=== PATIENT | male | born 1955 | race Caucasian/White ===

== ENCOUNTER 2020-07-17 08:27 | Emergency (ER) | payer MEDICARE, MEDICAID ==
--- NOTE | 2020-07-17 09:38 | EDM.PDOC ---
ED HPI GENERAL MEDICAL PROBLEM - General Chief Complaint: General Stated Complaint: COVID + Time Seen by Provider: 07/17/20 08:47 Source of Information: Reports: Patient History Limitations: Reports: No Limitations - History of Present Illness INITIAL COMMENTS - FREE TEXT/NARRATIVE: The patient presents by alf van from [facility] for medical clearance. The patient has a history of psychiatric problems and COPD. He is on oxygen at the alf at 2L and he has not required anymore oxygen. He tested positive for COVID 19 yesterday. He has no symptoms such as fever, chills, headache, cough, chest pain, shortness of breath, abdominal pain, nausea, vomiting or diarrhea. Arrangements have been made to transport him to [facility] at the [facility] [place]. Onset: Gradual Duration: Day(s): Severity: Moderate Improves with: Reports: None Worsens with: Reports: None Associated Symptoms: Reports: No Other Symptoms Left Hip Pain Score (Numeric/FACES): 3 - Related Data Allergies Allergy/AdvReac Type Severity Reaction Status Date / Time No Known Allergies Allergy Verified 03/22/20 07:48 Past Medical History Respiratory History: Reports: COPD Social & Family History - Tobacco Use Tobacco Use Status *Q: Former Tobacco User Used Tobacco, but Quit: No - Caffeine Use Caffeine Use: Reports: Coffee - Recreational Drug Use Recreational Drug Use: No ED ROS GENERAL - Review of Systems Review Of Systems: See Below Constitutional: Reports: No Symptoms HEENT: Reports: No Symptoms Respiratory: Reports: No Symptoms Cardiovascular: Reports: No Symptoms Endocrine: Reports: No Symptoms GI/Abdominal: Reports: No Symptoms : Reports: No Symptoms Musculoskeletal: Reports: No Symptoms ED EXAM, GENERAL - Physical Exam Exam: See Below Exam Limited By: No Limitations General Appearance: Alert, No Apparent Distress Ears: Normal External Exam Nose: Normal Inspection Head: Atraumatic, Normocephalic Neck: Normal Inspection Respiratory/Chest: No Respiratory Distress, Lungs Clear, Normal Breath Sounds Cardiovascular: Regular Rate, Rhythm, No Edema, No Murmur GI/Abdominal: Soft, Non-Tender, No Organomegaly, No Mass Back Exam: Normal Inspection Extremities: Normal Inspection Course - Vital Signs Last Recorded V/S: Last Vital Signs Temp 97.7 F 07/17/20 08:56 Pulse 80 11/18/20 09:43 Resp 18 07/17/20 09:43 BP 124/57 L 07/17/20 08:56 Pulse Ox 94 L 07/17/20 09:43 - Orders/Labs/Meds Orders: Active Orders 24 hr Category Date Time Status Cardiac Monitoring [RC] . DIRECTED Care 07/17/20 09:18 Active Oxygen Therapy [RC] PRN Care 07/17/20 09:19 Active Chest 1V Frontal [CR] Stat Exams 07/17/20 09:19 Taken ACETAMINOPHEN [CHEM] Stat Lab 07/17/20 09:35 Received C-REACTIVE PROTEIN [CHEM] Stat Lab 07/17/20 09:35 Received COMPREHENSIVE METABOLIC PN,CMP [CHEM] Stat Lab 07/17/20 09:35 Received D-DIMER QUANTITATIVE [COAG] Stat Lab 07/17/20 09:35 Received DRUG SCREEN, URINE [URCHEM] Stat Lab 07/17/20 09:18 Ordered ETHANOL BLOOD MEDICAL [CHEM] Stat Lab 07/17/20 09:35 Received LACTIC ACID [CHEM] Stat Lab 07/17/20 09:35 Received SALICYLATE [CHEM] Stat Lab 07/17/20 09:35 Received SEDIMENTATION RATE AUTO [HEME] Stat Lab 07/17/20 09:35 Received TSH [CHEM] Stat Lab 07/17/20 09:35 Received Labs: Laboratory Tests 07/17/20 Range/Units 09:35 WBC 4.36 (4.23-9.07) K/mm3 RBC 3.90 L (4.63-6.08) M/mm3 Hgb 12.7 L (13.7-17.5) gm/dl Hct 39.6 L (40.1-51.0) % MCV 101.5 H (79.0-92.2) fl MCH 32.6 H (25.7-32.2) pg MCHC 32.1 L (32.2-35.5) g/dl RDW Std Deviation 49.6 H (35.1-43.9) fL Plt Count 193 (163-337) K/mm3 MPV 8.8 L (9.4-12.3) fl Neut % (Auto) 66.5 (34.0-67.9) % Lymph % (Auto) 18.8 L (21.8-53.1) % Simpson % (Auto) 12.8 H (5.3-12.2) % Eos % (Auto) 1.4 (0.8-7.0) Baso % (Auto) 0.5 (0.1-1.2) % Neut # (Auto) 2.90 (1.78-5.38) K/mm3 Lymph # (Auto) 0.82 L (1.32-3.57) K/mm3 Simpson # (Auto) 0.56 (0.30-0.82) K/mm3 Eos # (Auto) 0.06 (0.04-0.54) K/mm3 Baso # (Auto) 0.02 (0.01-0.08) K/mm3 - Re-Assessments/Exams Free Text/Narrative Re-Assessment/Exam: 07/17/20 09:51 I have ordered a CXR and labs. 07/17/20 10:00 His CXR shows poor inspiratory effort but no infiltrates noted. Labs are pending. His oxygen saturations remain in the mid 90s on 2L of oxygen. I feel he is medically cleared to go to the [facility]. Departure - Departure Time of Disposition: 10:05 Disposition: DC/[facility]fer to [facility] Condition: Good Clinical Impression: COVID-19 COPD (chronic obstructive pulmonary disease) Qualifiers: COPD type: unspecified COPD Qualified Code(s): J44.9 - Chronic obstructive pulmonary disease, unspecified - Discharge Information *PRESCRIPTION DRUG MONITORING PROGRAM REVIEWED*: Not Applicable *COPY OF PRESCRIPTION DRUG MONITORING REPORT IN PATIENT DARIUS: Not Applicable Referrals: PCP,None [Primary Care Provider] - Forms: ED Department Discharge Additional Instructions: A medical screening exam was done and you are medically cleared to go to the [facility] in [place]. Sepsis Event Note (ED) - Evaluation Sepsis Screening Result: No Definite Risk - Focused Exam Vital Signs: Vital Signs Temp Pulse Resp BP Pulse Ox Pulse Ox 07/17/20 09:43 80 18 94 L 07/17/20 09:42 94 L 07/17/20 08:56 97.7 F 83 18 124/57 L 95 - My Orders Last 24 Hours: My Active Orders 07/17/20 09:18 Cardiac Monitoring [RC] . DIRECTED DRUG SCREEN, URINE [URCHEM] Stat 07/17/20 09:19 Oxygen Therapy [RC] PRN Chest 1V Frontal [CR] Stat 07/17/20 09:35 ACETAMINOPHEN [CHEM] Stat C-REACTIVE PROTEIN [CHEM] Stat COMPREHENSIVE METABOLIC PN,CMP [CHEM] Stat D-DIMER QUANTITATIVE [COAG] Stat ETHANOL BLOOD MEDICAL [CHEM] Stat LACTIC ACID [CHEM] Stat SALICYLATE [CHEM] Stat SEDIMENTATION RATE AUTO [HEME] Stat TSH [CHEM] Stat - Assessment/Plan Last 24 Hours: My Active Orders 07/17/20 09:18 Cardiac Monitoring [RC] . DIRECTED DRUG SCREEN, URINE [URCHEM] Stat 07/17/20 09:19 Oxygen Therapy [RC] PRN Chest 1V Frontal [CR] Stat 07/17/20 09:35 ACETAMINOPHEN [CHEM] Stat C-REACTIVE PROTEIN [CHEM] Stat COMPREHENSIVE METABOLIC PN,CMP [CHEM] Stat D-DIMER QUANTITATIVE [COAG] Stat ETHANOL BLOOD MEDICAL [CHEM] Stat LACTIC ACID [CHEM] Stat SALICYLATE [CHEM] Stat SEDIMENTATION RATE AUTO [HEME] Stat TSH [CHEM] Stat
[2020-07-17] MEDS ORDERED: Sodium Chloride 0.9% 10 ML Syringe FLUSH PRN (10:12)
[2020-07-17 10:19] LABS: ACETAMINOPHEN 0 ug/mL (10-30)
[2020-07-17] MEDS ORDERED: Iopamidol 755 Mg/ML 100 ML Bottle IVPUSH ONE (10:19)
[2020-07-17] MEDS ORDERED: Sodium Chloride 0.9% 100 ML IV SCH (10:30)
[2020-07-17] MEDS ORDERED: Iopamidol 755 MG/ML 50 ML Bottle IVPUSH ONE (10:32)
[2020-07-17] MEDS: Sodium Chloride 0.9% 10 ML Syringe FLUSH PRN ×2 (10:40→11:03)
--- NOTE | 2020-07-17 10:59 | CR ---
PROCEDURE INFORMATION: Exam: XR Chest, 1 View Exam date and time: 07/17/2020 9:18 AM Age: 65 years old Clinical indication: Chest pain; Type not specified TECHNIQUE: Imaging protocol: XR of the chest Views: 1 view. COMPARISON: No relevant prior studies available. FINDINGS: Lungs: The right hemidiaphragm is elevated and there is mild atelectasis at the right lung base. Pleural space: Normal. Heart/Mediastinum: Normal heart and cardiomediastinal silhouette. Vasculature: Normal pulmonary vessel caliber. Normal aorta. Bones/joints: The bones are intact. IMPRESSION: Mild atelectasis. No acute disease. Thank you for allowing us to participate in the care of your patient. Dictated and Authenticated by: Bronson Murray MD 07/17/2020 11:57 AM Central Time ([place] & [place]) [email or web address]
--- NOTE | 2020-07-17 12:03 | CT ---
Addendum created by Saud Villalobos MD on 07/17/2020 12:33 PM Central Time ([place] & [place]): THIS REPORT CONTAINS FINDINGS THAT MAY BE CRITICAL TO PATIENT CARE. The findings were verbally communicated via telephone conference with GUILHERME SANDHU at 12:32 PM TECHNOLOGY PROFESSIONAL on 07/17/2020. The findings were acknowledged and understood. Initial Report created on 07/17/2020 12:31 PM Central Time ([place] & [place]): PROCEDURE INFORMATION: Exam: CT Angiography Chest With Contrast Exam date and time: 07/17/2020 10:30 AM Age: 65 years old Clinical indication: Abnormal findings; Abnormal diagnostic tests; Elevated d- dimer; Additional info: Covid-19 TECHNIQUE: Imaging protocol: Computed tomographic angiography of the chest with intravenous contrast. 3D rendering (Not supervised by radiologist): MIP and/or 3D reconstructed images were created by the technologist. Contrast material: ISOVUE 370; Contrast volume: 100 ml; Contrast route: INTRAVENOUS (IV); COMPARISON: CR Chest 1V Frontal 07/17/2020 9:18 AM FINDINGS: Pulmonary arteries: Filling defects in the upper and lower divisions of the pulmonary arteries, most prominent in the left lower lung. No thrombus extends across the main pulmonary arteries. Aorta: No aortic aneurysm. No aortic dissection. Lungs: No consolidation or infarction. Pleural space: No pleural effusion or pneumothorax. Heart: Borderline cardiomegaly, no right ventricular dilatation. Lymph nodes: No significant adenopathy. Bones/joints: No acute findings. Soft tissues: Right hemidiaphragm elevation. IMPRESSION: Bilateral subsegmental pulmonary emboli. Thank you for allowing us to participate in the care of your patient. Dictated and Authenticated by: Saud Villalobos MD 07/17/2020 12:31 PM Central Time ([place] & [place]) [facility]
[2020-07-17] MEDS ORDERED: Rivaroxaban 15 MG Tab PO ONE (12:15)
[2020-07-17] MEDS ORDERED: Rivaroxaban 15 MG Tab PO SCH (17:00)
== END 2020-07-17 12:45 ==
LOC: JD.ED 08:27
DX: U07.1 COVID-19 (principal); J44.9 Chronic obstructive pulmonary disease, unspecified; Z87.891 Personal history of nicotine dependence
CPT/HCPCS: 36415; 71045; 71275; 80053; 80306; 80307; 83605; 84443; 85025; 85379; 85652; 86140; 94762; 99284; A9270; Q9967; 99283

== ENCOUNTER 2022-10-10 04:10 | Inpatient (IN) | payer MEDICARE, MEDICAID ==
[2022-10-10] MEDS ORDERED: Sodium Chloride 0.9% 10 ML Syringe FLUSH PRN (04:42)
[2022-10-10] MEDS ORDERED: Sodium Chloride 0.9% 1,000 ML IV SCH (04:45)
[2022-10-10 05:31] LABS: CORONAVIRUS COVID-19 NAA NEGATIVE (NEGATIVE)
[2022-10-10] MEDS ORDERED: Meropenem 1 GM in Sodium Chloride 0.9% 100 ML IV ONE (06:02)
[2022-10-10] MEDS: Formoterol/Mometasone 200-5 MCG 8.8 GM Inhaler IH SCH ×2 (09:39→20:30)
[2022-10-10] MEDS ORDERED: oxyCODONE 5 MG Tab PO PRN (10:29)
[2022-10-10] MEDS ORDERED: Acetaminophen 325 MG Tab PO PRN (10:29)
[2022-10-10] MEDS ORDERED: Morphine 2 MG/ML SYRINGE IVPUSH PRN (10:29)
[2022-10-10] MEDS: traMADol 50 MG Tab PO SCH ×4 (12:18→21:26)
[2022-10-10] MEDS: metFORMIN 500 MG Tab PO SCH ×2 (12:19→17:24)
[2022-10-10] MEDS: Carboxymethylcellulose Sodium 1% Ophth Gel 15 ML Bottle EYEBOTH SCH ×3 (12:19→21:26)
[2022-10-10] MEDS: Furosemide 40 MG Tab PO SCH ×2 (12:19→15:27)
[2022-10-10] MEDS: Gabapentin 600 MG Tab PO SCH ×3 (12:19→21:26)
[2022-10-10] MEDS: Memantine 10 MG Tab PO SCH ×2 (12:27→21:26)
[2022-10-10] MEDS: Ziprasidone HCl 20 MG Cap PO SCH ×2 (12:27→21:26)
[2022-10-10] MEDS: Citalopram 10 MG Tab PO SCH (12:27)
[2022-10-10] MEDS: Menthol 10%/Methyl Salicylate 30% 85 GM Tube TOP SCH ×2 (13:17→21:00)
[2022-10-10] MEDS: Insulin Regular, Human 100 Units/ML 3 ML Vial SUBCUT SCH ×2 (13:18→18:09)
[2022-10-10] MEDS: Meropenem 1 GM in Sodium Chloride 0.9% 100 ML IV SCH ×2 (15:28→21:26)
[2022-10-10] MEDS: Rivaroxaban 10 MG Tab PO SCH (17:24)
[2022-10-10] MEDS: Sodium Chloride 0.9% 1,000 ML IV SCH (17:26)
[2022-10-11] MEDS: Furosemide 40 MG Tab PO SCH ×2 (05:55→13:00)
[2022-10-11] MEDS: Meropenem 1 GM in Sodium Chloride 0.9% 100 ML IV SCH ×3 (05:56→22:17)
[2022-10-11] MEDS: metFORMIN 500 MG Tab PO SCH ×2 (05:59→16:49)
[2022-10-11] MEDS: Insulin Regular, Human 100 Units/ML 3 ML Vial SUBCUT SCH ×3 (08:26→18:01)
[2022-10-11] MEDS: Citalopram 10 MG Tab PO SCH (08:26)
[2022-10-11] MEDS: Ziprasidone HCl 20 MG Cap PO SCH ×2 (08:26→20:20)
[2022-10-11] MEDS: traMADol 50 MG Tab PO SCH ×4 (08:27→20:20)
[2022-10-11] MEDS: Memantine 10 MG Tab PO SCH ×2 (08:28→20:21)
[2022-10-11] MEDS: Menthol 10%/Methyl Salicylate 30% 85 GM Tube TOP SCH ×2 (08:28→20:23)
[2022-10-11] MEDS: Gabapentin 600 MG Tab PO SCH ×3 (08:28→20:21)
[2022-10-11] MEDS: Formoterol/Mometasone 200-5 MCG 8.8 GM Inhaler IH SCH ×2 (08:29→20:27)
[2022-10-11] MEDS: Carboxymethylcellulose Sodium 1% Ophth Gel 15 ML Bottle EYEBOTH SCH ×3 (08:29→20:20)
[2022-10-11] MEDS: Sodium Chloride 0.9% 1,000 ML IV SCH ×2 (11:35→22:15)
[2022-10-11] MEDS: Rivaroxaban 10 MG Tab PO SCH (16:50)
[2022-10-12] MEDS: Meropenem 1 GM in Sodium Chloride 0.9% 100 ML IV SCH ×3 (05:21→22:02)
[2022-10-12] MEDS: Furosemide 40 MG Tab PO SCH ×2 (05:24→13:24)
[2022-10-12] MEDS ORDERED: Magnesium Hydroxide 400 MG/5 ML Susp 30 ML Cup PO PRN (06:36)
[2022-10-12] MEDS: metFORMIN 500 MG Tab PO SCH ×2 (07:53→17:24)
[2022-10-12] MEDS: Citalopram 10 MG Tab PO SCH (08:33)
[2022-10-12] MEDS: traMADol 50 MG Tab PO SCH ×4 (08:34→22:03)
[2022-10-12] MEDS: Gabapentin 600 MG Tab PO SCH ×3 (08:35→22:01)
[2022-10-12] MEDS: Ziprasidone HCl 20 MG Cap PO SCH ×2 (08:35→22:01)
[2022-10-12] MEDS: Memantine 10 MG Tab PO SCH ×2 (08:35→22:01)
[2022-10-12] MEDS: Menthol 10%/Methyl Salicylate 30% 85 GM Tube TOP SCH ×2 (08:52→22:01)
[2022-10-12] MEDS: Carboxymethylcellulose Sodium 1% Ophth Gel 15 ML Bottle EYEBOTH SCH ×3 (08:52→22:03)
[2022-10-12] MEDS: Formoterol/Mometasone 200-5 MCG 8.8 GM Inhaler IH SCH ×2 (08:59→21:38)
[2022-10-12] MEDS: Nystatin Topical Powder 15 GM Bottle TOP SCH ×2 (09:24→22:01)
[2022-10-12] MEDS: Insulin Regular, Human 100 Units/ML 3 ML Vial SUBCUT SCH ×3 (09:26→19:12)
[2022-10-12] MEDS: Rivaroxaban 10 MG Tab PO SCH (17:24)
[2022-10-13] MEDS: Furosemide 40 MG Tab PO SCH (06:21)
[2022-10-13] MEDS: Meropenem 1 GM in Sodium Chloride 0.9% 100 ML IV SCH (06:21)
[2022-10-13] MEDS: metFORMIN 500 MG Tab PO SCH (06:23)
[2022-10-13] MEDS: Ziprasidone HCl 20 MG Cap PO SCH (08:41)
[2022-10-13] MEDS: Gabapentin 600 MG Tab PO SCH (08:41)
[2022-10-13] MEDS: Memantine 10 MG Tab PO SCH (08:42)
[2022-10-13] MEDS: traMADol 50 MG Tab PO SCH (08:42)
[2022-10-13] MEDS: Citalopram 10 MG Tab PO SCH (08:42)
[2022-10-13] MEDS: Menthol 10%/Methyl Salicylate 30% 85 GM Tube TOP SCH (08:42)
[2022-10-13] MEDS: Carboxymethylcellulose Sodium 1% Ophth Gel 15 ML Bottle EYEBOTH SCH (08:43)
[2022-10-13] MEDS: Nystatin Topical Powder 15 GM Bottle TOP SCH (08:43)
[2022-10-13] MEDS: Insulin Regular, Human 100 Units/ML 3 ML Vial SUBCUT SCH (09:18)
[2022-10-13] MEDS: Formoterol/Mometasone 200-5 MCG 8.8 GM Inhaler IH SCH (09:24)
== END 2022-10-13 12:35 | DRG 871 ==
LOC: JD.ED 04:10 → JD.MS 07:03
PROVIDERS: ADMIT Internal Medicine; ATTEND Internal Medicine
PROC: XW033N5 Introduction of Meropenem-vaborbactam Anti-infective into Peripheral Vein, Percutaneous Approach, New Technology Group 5 (ICD-10-PCS; principal; 2022-10-10)
PROC: 3E03329 Introduction of Other Anti-infective into Peripheral Vein, Percutaneous Approach (ICD-10-PCS; 2022-10-10)
DX: A41.9 Sepsis, unspecified organism (principal); J18.9 Pneumonia, unspecified organism; G30.9 Alzheimer's disease, unspecified; J96.21 Acute and chronic respiratory failure with hypoxia; J44.0 Chronic obstructive pulmonary disease with (acute) lower respiratory infection; I11.0 Hypertensive heart disease with heart failure; I50.9 Heart failure, unspecified; E11.9 Type 2 diabetes mellitus without complications; J44.9 Chronic obstructive pulmonary disease, unspecified; E66.01 Morbid (severe) obesity due to excess calories; Z68.42 Body mass index [BMI] 45.0-49.9, adult; R65.20 Severe sepsis without septic shock; Z66 Do not resuscitate; Z20.822 Contact with and (suspected) exposure to COVID-19; G30.0 Alzheimer's disease with early onset; F02.80 Dementia in other diseases classified elsewhere, unspecified severity, without behavioral disturbance, psychotic disturbance, mood disturbance, and anxiety; E11.69 Type 2 diabetes mellitus with other specified complication; E66.9 Obesity, unspecified; E78.00 Pure hypercholesterolemia, unspecified; I10 Essential (primary) hypertension; K21.9 Gastro-esophageal reflux disease without esophagitis; M19.90 Unspecified osteoarthritis, unspecified site; R32 Unspecified urinary incontinence; Z79.01 Long term (current) use of anticoagulants; Z79.899 Other long term (current) drug therapy; Z79.84 Long term (current) use of oral hypoglycemic drugs; Z86.16 Personal history of COVID-19
CPT/HCPCS: 0241U; 36415; 71045; 80053; 82947; 83605; 83880; 85025; 86140; 87040; 87641; 93005; 94640; 94760; 94761; 94762; 96361; 96365; 96366; 97161; 97166; 99284; 93010; 99285; A9270-GY; J1815-GY; J2185; J3490; J7030